=== PATIENT | male | born 1950 | race Caucasian/White ===

== ENCOUNTER 2025-03-27 05:43 | Day surgery (SDC) | payer OTHER ==
[2025-03-23 11:04] VITALS: BP 130/75; PULSE 85; RESP 12; TEMP 98.4
[2025-03-23 11:13] LABS: IMMATURE GRANULOCYTE ABSOLUTE 0.02 K/uL (0-1); NUCLEATED RED BLOOD CELLS 0.0 % (0.0-0.19); PLATELET COUNT (AUTO) 158 K/uL (130-400); RED BLOOD CELL COUNT(AUTO) 5.07 MIL/uL (4.50-6.20); RED CELL DISTRIBUTION WIDTH 14.1 % (11.0-15.5); WHITE BLOOD COUNT (AUTO) 6.8 K/uL (4.8-10.8)
[2025-03-23 11:27] LABS: CREATININE 2.4 mg/dL (0.5-1.3); GLOMERULAR FILTR. RATE CALC 27.0 mL/min (>90); GLUCOSE,RANDOM 105.0 mg/dL (70-105); SODIUM SERUM 142.0 mmol/L (136-145); UREA NITROGEN, BLOOD 37.0 mg/dL (7-18)
[2025-03-23 11:29] LABS: INR 1.13 (0.85-1.15)
--- NOTE | 2025-03-26 14:17 | NUR ---
report reported bmp to dr bowman. ok to proceed
[2025-03-27] VITALS (15 sets, daily range): BP systolic 97–128; BP diastolic 46–95; PULSE 48–101; RESP 9–19; TEMP 97.7–97.8
[~2025-03-27] VITALS: Ht 177.8 cm; Wt 106.1 kg
[~2025-03-27 05:43] MED LIST: ALLO300T2 PO; AMLO-258 PO; APIX5TAB PO; ATOR10 PO; CALC0.253 PO; DOXA4TAB3 PO; EMPA25TA PO; LOSA100T59 PO; METO-391 PO; METO-409 PO; SODI325T PO
--- NOTE | 2025-03-27 06:33 | EKG ---
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
[2025-03-27] MEDS: 0.9%NACL 1000ML 1,000 ML IV SCH (06:37)
--- NOTE | 2025-03-27 07:30 | NUR ---
CARDIOVERSION: PREPARING PATIENT FOR CARDIOVERSION. TIME OUT DONE AT 0735 WITHOUT ANY PROBLEMS. JOSE DOWNEY CRNA STARTED GIVING MEDICATION S AT 07:[address] LOW SHOCKED PATIENT AT 07:39 AM AT 200 JOULES. PT CONVERTED TO SINUS . PATIENT TOLERATED PROCEDURE WELL. OUT OF ROOM AT 07:50
--- NOTE | 2025-03-27 08:04 | EKG ---
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
[2025-03-27] MEDS ORDERED: DRON400T7 PO (08:25)
--- NOTE | 2025-03-27 16:08 | PRN ---
Procedure Note INDICATION FOR PROCEDURE: Persistent atrial fibrillation PROCEDURE: Cardioversion DATE OF PROCEDURE: 03/27/2025 PRE PRESS OPERATOR: Dr. Umang Low PROCEDURE NOTE: The patient was brought to the day patient area in a fasting state. Anesthesia was provided by the anesthesia service. A single synchronized shock of 200 joules was delivered resulting in sinus rhythm. The patient tolerated the procedure well. COMPLICATIONS: None IMPRESSION: Successful cardioversion from atrial fibrillation PLAN: The patient will be observed and discharged later today. He will follow up with me in the office in approximately two weeks. UMANG LOW MD Mar 27, 2025 16:08
== END 2025-03-27 08:50 | disposition home or self-care (01) ==
LOC: DAH 05:43
PROVIDERS: ATTEND Internal Medicine Cardiovascular Disease
DX: I48.19 Other persistent atrial fibrillation (principal); I48.0 Paroxysmal atrial fibrillation; I12.9 Hypertensive chronic kidney disease with stage 1 through stage 4 chronic kidney disease, or unspecified chronic kidney disease; N18.9 Chronic kidney disease, unspecified; M10.9 Gout, unspecified; E66.9 Obesity, unspecified; Z68.33 Body mass index [BMI] 33.0-33.9, adult; Z87.442 Personal history of urinary calculi; Z88.5 Allergy status to narcotic agent; Z98.890 Other specified postprocedural states; Z79.899 Other long term (current) drug therapy
CPT/HCPCS: 80048; 85025; 85610; 85730; 36415; 93005 ×2; 92960; A4223 ×3; J7030; A4620; A4215; A4222; A4221; A4663; A4216; A4606